=== PATIENT | male | born 1950 | race Caucasian/White ===

== ENCOUNTER → 2018-10-15 | Outpatient (CLI) | payer OTHER ==
[~2018-10-15] MED LIST: ADULT LOW DOSE81 MG OR; CENTRUM SILVER1 EAC2 PO; CENTRUM TABLET1 TAB; COLCRYS0.6 MG; CRANBERRY400 MG; FISH OIL 1,0001 EAC5 PO; FLOMAX0.4 MG PO; FOSINOPRIL SODI40 M1 PO; HYDROCHLOROTH12.5 MG OR; HYDROCHLOROTHIA25 M2 PO; INDOMETHACIN 2525 MG PO; LOPERAMIDE 2 MG2 M1 PO; MONOPRIL40 MG OR; NORCO 5-325 TA1 EACH PO; PENTASA500 MG OR; POTASSIUM CITR10 ME1 PO; REMICADE 1100 MG/VIA IV; TOPROL XL100 MG OR
== END ==
LOC: CAT 14:00
DX: Z13.6 Encounter for screening for cardiovascular disorders (principal); E78.00 Pure hypercholesterolemia, unspecified; I25.10 Atherosclerotic heart disease of native coronary artery without angina pectoris

== ENCOUNTER → 2020-04-10 | Outpatient (CLI) | payer OTHER | LOC: SJCVCIMAG 08:39 | PROVIDERS: ATTEND Internal Medicine Cardiovascular Disease | DX: I25.10 Atherosclerotic heart disease of native coronary artery without angina pectoris (principal); I10 Essential (primary) hypertension; Z79.899 Other long term (current) drug therapy ==

== ENCOUNTER → 2021-06-04 | Outpatient (CLI) | payer OTHER | LOC: SJCVC 13:12 | PROVIDERS: ATTEND Internal Medicine Cardiovascular Disease | DX: I10 Essential (primary) hypertension (principal); I25.10 Atherosclerotic heart disease of native coronary artery without angina pectoris; K50.90 Crohn's disease, unspecified, without complications; Z79.82 Long term (current) use of aspirin; Z79.899 Other long term (current) drug therapy; Z72.89 Other problems related to lifestyle; Z88.0 Allergy status to penicillin; Z88.8 Allergy status to other drugs, medicaments and biological substances ==